=== PATIENT | male | born 1965 | race African-American/Black ===

== ENCOUNTER 2016-06-23 17:17 | Observation (INO) | payer SELFPAY ==
[~2016-06-23] VITALS: Ht 165.1 cm; Wt 61.2 kg
[~2016-06-23 17:17] MED LIST: KEPPRA500 MG PO; KEPPRA750 MG PO; LEVETIRACETAM500 MG PO; VITAMIN B-12500 MC5 SL; ZONISAMIDE100 MG PO
[2016-06-23 18:07] LABS: HEMATOCRIT 42.2 % (38.0-50.0); MCH 34.5 PG (29.0-34.0); MCHC 33.6 G/DL (30.0-36.0); MCV 102.7 FL (86-99); MEAN PLAT.VOLUME 10.6 uM^3 (9.0-12.4); PLATELET COUNT 183 K/uL (156-360); RBC DIS.WIDTH-CV 11.6 % (11.8-14.6); RBC DIS.WIDTH-SD 42.9 % (39-53); RED BLOOD COUNT 4.11 M/uL (4.00-5.50); WHITE BLOOD COUNT 8.3 K/uL (4.1-10.2)
[2016-06-23 18:18] LABS: CHLORIDE 107 mEq/L (99-109); POTASSIUM 4.3 mEq/L (3.7-5.4); SODIUM 141 mEq/L (136-147)
[2016-06-23 18:20] LABS: GLUCOSE 118 mg/dL (70-99)
[2016-06-23 18:22] LABS: ANION GAP 14 MEQ/L (2-14)
[2016-06-23 18:24] LABS: GFR ESTIMATE (CALCULATED) > 59 mL/min/
[2016-06-23 18:25] LABS: UREA NITROGEN (BUN) 12 mg/dL (9-23)
[2016-06-24 02:20] LABS: ADD MEDTOX COMMENT Y; AMPHETAMINE NEGATIVE (500 ng/mL); BARBITURATES NEGATIVE (200 ng/mL); BENZODIAZEPINES PRESUMPTIVE POSITIVE (150 ng/mL); COCAINE NEGATIVE (150 ng/mL); INTERNAL CONTROLS VALID? YES; METHADONE NEGATIVE (200 ng/mL); METHAMPHETAMINE NEGATIVE (500 ng/mL); OPIATES (MORPHINE) NEGATIVE (100 ng/mL); OXYCODONE NEGATIVE (100 ng/mL); PHENCYCLIDINE NEGATIVE (25 ng/mL); PROPOXYPHENE NEGATIVE (300 ng/mL); THC CANNABINOIDS PRESUMPTIVE POSITIVE (50 ng/mL); TRICYCLIC ANTIDEPRESSANTS NEGATIVE (300 ng/mL)
[2016-06-24 02:54] LABS: BENZODIAZEPINES QUANT VALUE 0 NG/ML
[2016-06-24 03:03] LABS: BENZODIAZEPINES, URINE SCREEN Negative (200 ng/mL)
[2016-06-24] MEDS ORDERED: KEPPRA1000 MG PO (11:57)
[2016-06-24] MEDS ORDERED: AZITHROMYCIN500 MG PO (11:58)
[2016-06-24 12:04] VITALS: BP 138/100
[2016-06-24 12:48] VITALS: BP 120/69
== END 2016-06-24 14:30 | disposition home or self-care (01) ==
LOC: EME → EDBD 17:17 → EDOF 21:47
PROVIDERS: Emergency Medicine
DX: G40.901 Epilepsy, unspecified, not intractable, with status epilepticus (principal); Z91.19 Patient's noncompliance with other medical treatment and regimen; J69.0 Pneumonitis due to inhalation of food and vomit; G93.40 Encephalopathy, unspecified
CPT/HCPCS: 70450; 71010; 71020; 80048; 80185; 84999; 85027; 87040; 99281; 99285; G0378; J0295; J0456; J1953; J2060; J7050

== ENCOUNTER 2016-10-08 22:11 | Observation (INO) | payer OTHER ==
[~2016-10-08] VITALS: Ht 162.6 cm; Wt 52.0 kg
[~2016-10-08 22:11] MED LIST changes: +AZITHROMYCIN500 MG PO; +KEPPRA1000 MG PO
[2016-10-09 00:07] LABS: HEMATOCRIT 45.5 % (38.0-50.0); MCHC 32.1 G/DL (30.0-36.0); MCV 105.8 FL (86-99); MEAN PLAT.VOLUME 10.1 uM^3 (9.0-12.4); PLATELET COUNT 178 K/uL (156-360); RBC DIS.WIDTH-CV 11.9 % (11.8-14.6); RBC DIS.WIDTH-SD 46.8 % (39-53)
[2016-10-09 00:34] LABS: CHLORIDE 104 mEq/L (99-109); POTASSIUM 4.6 mEq/L (3.7-5.4); SODIUM 140 mEq/L (136-147)
[2016-10-09 00:36] LABS: GLUCOSE 142 mg/dL (70-99)
[2016-10-09 00:37] LABS: ANION GAP 18 MEQ/L (2-14)
[2016-10-09 00:38] LABS: TOTAL BILIRUBIN 0.3 mg/dL (0.0-1.0)
[2016-10-09 00:39] LABS: ALKALINE PHOSPHATASE 108 IU/L (3-129); SERUM ETHYL ALCOHOL < 10 mg/dL
[2016-10-09 00:40] LABS: GFR ESTIMATE (CALCULATED) > 59 mL/min/
[2016-10-09 00:41] LABS: UREA NITROGEN (BUN) 10 mg/dL (9-23)
[2016-10-09 00:43] LABS: CREATINE KINASE 203 IU/L (1-294); LIPASE 16 U/L (1.0-51.0); TOTAL CK 203 IU/L (1-294)
[2016-10-09 00:49] LABS: CK-MB 3.2 ng/mL (0.0-4.9)
[2016-10-09 03:53] VITALS: BP 107/69
[2016-10-09 07:08] VITALS: BP 123/65
[2016-10-09 07:23] LABS: MCHC 33.3 G/DL (30.0-36.0); MCV 102.3 FL (86-99); MEAN PLAT.VOLUME 10.4 uM^3 (9.0-12.4); PLATELET COUNT 186 K/uL (156-360); RBC DIS.WIDTH-CV 11.9 % (11.8-14.6); RBC DIS.WIDTH-SD 45.4 % (39-53); RED BLOOD COUNT 3.91 M/uL (4.00-5.50)
[2016-10-09 07:28] LABS: WHITE BLOOD COUNT 9.8 K/uL (4.1-10.2)
[2016-10-09 07:34] LABS: ALKALINE PHOSPHATASE 96 IU/L (3-129); ANION GAP 9 MEQ/L (2-14); CHLORIDE 104 MEQ/L (99-109); GFR ESTIMATE (CALCULATED) > 59 mL/min/; POTASSIUM 4.2 MEQ/L (3.7-5.4); SAMPLE HEMOLYSIS CHECK 0; SAMPLE ICTERIC CHECK 0; SAMPLE LIPEMIA CHECK 0; SODIUM 139 MEQ/L (136-147); TOTAL BILIRUBIN 0.6 MG/DL (0.0-1.0); UREA NITROGEN (BUN) 8 mg/dL (9-23)
[2016-10-09 07:35] LABS: GLUCOSE 94 mg/dL (70-99)
[2016-10-09] MEDS ORDERED: KEPPRA750 MG PO (14:59)
[2016-10-09 16:26] VITALS: BP 112/55
[2016-10-09 19:41] VITALS: BP 102/61
[2016-10-09 22:05] LABS: ADD MIUA? YES; BILIRUBIN NEGATIVE; BLOOD NEGATIVE; COLOR YELLOW ((YELLOW)); GLUCOSE (STRIP) NEGATIVE; KETONES 5; LEUKOCYTES NEGATIVE; NITRITE NEGATIVE; PROTEIN (STRIP) NEGATIVE; SPECIFIC GRAVITY 1.026 (1.000-1.030); UROBILINOGEN 0.2 MG/DL (0.2-1.0)
[2016-10-09 22:57] LABS: RED BLOOD CELLS 0-5 /HPF (0-5); WHITE BLOOD CELLS NONE SEEN /HPF (0-5)
[2016-10-09 22:58] LABS: BACTERIA RARE /HPF; CASTS NONE SEEN /LPF; CRYSTALS PRESENT; EPITHELIAL CELLS RARE /HPF; MUCUS NONE SEEN /LPF; URIC ACID CRYSTALS 1+ /HPF
[2016-10-10 00:29] VITALS: BP 117/64
[2016-10-10 03:51] VITALS: BP 103/54
[2016-10-10 07:31] VITALS: BP 112/68
[2016-10-10 11:30] VITALS: BP 97/64
[2016-10-10] MEDS ORDERED: KEPPRA750 MG PO (12:50)
== END 2016-10-10 14:35 | disposition home or self-care (01) ==
LOC: EME 22:11 → EDOF 10-09 02:07 → 5EAST 10-09 02:07
PROVIDERS: Emergency Medicine; Hospitalist
DX: G40.901 Epilepsy, unspecified, not intractable, with status epilepticus (principal); R51 Headache; R41.82 Altered mental status, unspecified; Z91.14 Patient's other noncompliance with medication regimen; R09.02 Hypoxemia; S01.512A Laceration without foreign body of oral cavity, initial encounter; X58.XXXA Exposure to other specified factors, initial encounter; B35.1 Tinea unguium; R42 Dizziness and giddiness
CPT/HCPCS: 70450; 70486; 71010; 80053; 80306 90; 81003; 82550; 82553; 83690; 85027; 94799; 99281; 99285; G0378; G0480; G8978 GP CH; G8979 GP CH; G8980 GP CH; G8987 GO CH; G8988 GO CH; G8989 GO CH; J1953; J2060; J2543; J7030; J7050

== ENCOUNTER 2016-10-23 11:17 | Emergency (ER) | payer OTHER ==
[~2016-10-23] VITALS: Ht 165.1 cm; Wt 56.7 kg
[2016-10-23 13:00] LABS: HEMATOCRIT 45.3 % (38.0-50.0); MCH 34.2 PG (29.0-34.0); MCHC 31.8 G/DL (30.0-36.0); RBC DIS.WIDTH-CV 12.4 % (11.8-14.6); RBC DIS.WIDTH-SD 49.2 % (39-53); RED BLOOD COUNT 4.21 M/uL (4.00-5.50); WHITE BLOOD COUNT 8.1 K/uL (4.1-10.2)
[2016-10-23 13:04] LABS: CHLORIDE 108 mEq/L (99-109); POTASSIUM 3.9 mEq/L (3.7-5.4); SODIUM 145 mEq/L (136-147)
[2016-10-23 13:07] LABS: GLUCOSE 120 mg/dL (70-99)
[2016-10-23 13:08] LABS: ANION GAP 18 MEQ/L (2-14); TOTAL BILIRUBIN 0.4 mg/dL (0.0-1.0)
[2016-10-23 13:10] LABS: ALKALINE PHOSPHATASE 97 IU/L (3-129); GFR ESTIMATE (CALCULATED) > 59 mL/min/; SERUM ETHYL ALCOHOL < 10 mg/dL
[2016-10-23 13:11] LABS: UREA NITROGEN (BUN) 12 mg/dL (9-23)
[2016-10-23 13:13] LABS: CREATINE KINASE 167 IU/L (1-294)
[2016-10-23 13:37] LABS: MCV 107.6 FL (86-99)
[2016-10-23 14:04] LABS: PLAT.SUFFICIENCY ADEQUATE; PLATELET COUNT 233 K/uL (156-360)
[2016-10-23 14:14] LABS: ADD MIUA? YES; BILIRUBIN NEGATIVE; BLOOD NEGATIVE; COLOR STRAW ((YELLOW)); GLUCOSE (STRIP) NEGATIVE; KETONES NEGATIVE; LEUKOCYTES NEGATIVE; NITRITE NEGATIVE; PROTEIN (STRIP) 100; SPECIFIC GRAVITY 1.016 (1.000-1.030); UROBILINOGEN 0.2 MG/DL (0.2-1.0)
[2016-10-23 14:22] LABS: BACTERIA NONE SEEN /HPF; EPITHELIAL CELLS RARE /HPF; GRANULAR CASTS 0-5 /LPF; HYALINE CASTS 0-5 /LPF; MUCUS TRACE /LPF; RED BLOOD CELLS 0-5 /HPF (0-5); UCUL ADDED? NO; WHITE BLOOD CELLS 0-5 /HPF (0-5)
[2016-10-23 14:24] LABS: ADD MEDTOX COMMENT Y; AMPHETAMINE NEGATIVE (500 ng/mL); BARBITURATES NEGATIVE (200 ng/mL); BENZODIAZEPINES NEGATIVE (150 ng/mL); COCAINE NEGATIVE (150 ng/mL); INTERNAL CONTROLS VALID? YES; METHADONE NEGATIVE (200 ng/mL); METHAMPHETAMINE NEGATIVE (500 ng/mL); OPIATES (MORPHINE) NEGATIVE (100 ng/mL); OXYCODONE NEGATIVE (100 ng/mL); PHENCYCLIDINE NEGATIVE (25 ng/mL); PROPOXYPHENE NEGATIVE (300 ng/mL); THC CANNABINOIDS PRESUMPTIVE POSITIVE (50 ng/mL); TRICYCLIC ANTIDEPRESSANTS NEGATIVE (300 ng/mL)
[2016-10-23] MEDS ORDERED: KEPPRA750 MG PO (16:14)
[2016-10-23 16:48] VITALS: BP 124/93
== END 2016-10-23 17:12 | disposition home or self-care (01) ==
LOC: EME → EDBD 11:17 → EME 11:17
PROVIDERS: Emergency Medicine
DX: G40.909 Epilepsy, unspecified, not intractable, without status epilepticus (principal); F12.10 Cannabis abuse, uncomplicated; F17.200 Nicotine dependence, unspecified, uncomplicated
CPT/HCPCS: 70450; 80053; 81003; 82550; 84999; 85027; 99281; 99285; G0480; J1953; J7030; J7050

== ENCOUNTER 2016-11-29 19:10 | Emergency (ER) | payer OTHER ==
[~2016-11-29] VITALS: Ht 162.6 cm; Wt 53.3 kg
[2016-11-29] MEDS ORDERED: PEN-VEE K,VEET500 MG PO (20:17)
[2016-11-29] MEDS ORDERED: NORCO 5/3251 TABLET PO (20:17)
[2016-11-29 20:53] VITALS: BP 163/107
== END 2016-11-29 20:53 | disposition home or self-care (01) ==
LOC: EME 19:10
DX: K02.9 Dental caries, unspecified (principal); S02.5XXA Fracture of tooth (traumatic), initial encounter for closed fracture; W22.8XXA Striking against or struck by other objects, initial encounter; G40.909 Epilepsy, unspecified, not intractable, without status epilepticus; Z87.891 Personal history of nicotine dependence
CPT/HCPCS: 99281; 99283